=== PATIENT | female | born 1960 | race Caucasian/White ===

== ENCOUNTER → 2019-11-02 | Outpatient (CLI) | payer MEDICAID, OTHER ==
--- NOTE | 2019-12-07 16:05 | REP ---
LEFT HAND 4-VIEWS REASON FOR EXAM: Pain after trauma last night. Pain particular to the base of the thumb. 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 There is intradigital joint space asymmetric narrowing and marginal osteophytosis affecting various intradigital joints to various degrees. Degenerative changes are also seen involving the first carpometacarpal joint space, as well as the first metacarpophalangeal joint with asymmetric joint space narrowing and marginal osteophytosis evident. There is no evidence of an acute fracture. IMPRESSION: Chronic changes as described above. 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 TANK GALVIN
== END ==
LOC: M WUC 15:12
PROVIDERS: ATTEND Physician Assistant
DX: M79.642 Pain in left hand (principal); M25.742 Osteophyte, left hand; M18.12 Unilateral primary osteoarthritis of first carpometacarpal joint, left hand